=== PATIENT | male | born 1995 | race Hispanic/Latino ===

== ENCOUNTER 2019-03-03 21:19 | Emergency (ER) | payer OTHER ==
[~2019-03-03] VITALS: Ht 167.6 cm; Wt 84.1 kg
[2019-03-03 21:20] VITALS: BP 121/82
[2019-03-03] MEDS ORDERED: LIDOCAINE 2% MDV 20 ML VIAL As Ordered ONE (21:43)
[2019-03-03] MEDS ORDERED: LIDOCAINE 1% MDV 20ML VIAL SC ONE (21:45)
[2019-03-03] MEDS ORDERED: ADACEL/BOOSTRIX VACCINE (DIPHTH/PERTUSS/ACELL/TETANUS)0.5ML SYR (90715) IM ONE (21:45)
== END 2019-03-03 22:10 | disposition home or self-care (01) ==
LOC: M ED 21:19
DX: S61.211A Laceration without foreign body of left index finger without damage to nail, initial encounter (principal); W26.8XXA Contact with other sharp object(s), not elsewhere classified, initial encounter; Y92.89 Other specified places as the place of occurrence of the external cause; Z87.891 Personal history of nicotine dependence

== ENCOUNTER 2019-07-30 19:23 | Emergency (ER) | payer OTHER ==
[~2019-07-30] VITALS: Ht 167.6 cm; Wt 88.6 kg
[2019-07-30 19:28] VITALS: BP 131/67
[2019-07-30] MEDS ORDERED: IBUP80TA PO (20:27)
[2019-07-30] MEDS ORDERED: IBUPROFEN 800 MG TAB PO ONE (20:30)
--- NOTE | 2019-07-31 09:31 | REP ---
REASON: Pain after trauma. FINDINGS: No acute fracture or destructive osseous lesion. The mortise is intact. Electronically Signed by Naveen Thurman DO 07/31/2019 09:46 A
== END 2019-07-30 20:49 | disposition home or self-care (01) ==
LOC: M ED 19:23
DX: S93.402A Sprain of unspecified ligament of left ankle, initial encounter (principal); X50.1XXA Overexertion from prolonged static or awkward postures, initial encounter; Y92.89 Other specified places as the place of occurrence of the external cause; Y93.01 Activity, walking, marching and hiking; Y99.1 Military activity; F17.200 Nicotine dependence, unspecified, uncomplicated

== ENCOUNTER 2020-04-25 16:22 | Emergency (ER) | payer OTHER ==
[~2020-04-25] VITALS: Ht 172.7 cm; Wt 93.5 kg
[~2020-04-25 16:22] MED LIST: IBUP80TA PO
[2020-04-25] MEDS ORDERED: LIDOCAINE 4% CREAM 5GM (LMX4) TOP ONE (17:30)
[2020-04-25 17:48] LABS: BASO # 0.1 10^3/uL (0.0-0.2); BASO % 1.1 % (0.0-1.0); EOS # 0.2 10^3/uL (0.0-0.5); EOS % 2.4 % (0.0-3.0); HEMATOCRIT 45.8 % (42.0-52.0); HEMOGLOBIN 16.4 g/dl (13.5-17.5); LYMPH # 2.4 10^3/uL (1.5-5.0); LYMPH % 38.3 % (24.0-44.0); MEAN CORPUSCULAR HEMOGLOBIN 31.7 pg (27.0-33.0); MEAN CORPUSCULAR HGB CONC 35.8 g/dl (32.0-36.5); MEAN CORPUSCULAR VOLUME 88.6 fl (80.0-96.0); MONO # 0.5 10^3/uL (0.0-0.8); MONO % 7.1 % (0.0-5.0); NEUTROPHILS # 3.2 10^3/uL (1.5-8.5); NEUTROPHILS % 50.9 % (36.0-66.0); PLATELET COUNT, AUTOMATED 204 10^3/uL (150-450); RED BLOOD COUNT 5.17 10^6/uL (4.30-6.10); WHITE BLOOD COUNT 6.3 10^3/uL (4.0-10.0)
[2020-04-25 18:23] LABS: CK-MB VALUE MASS 4.4 NG/ML (<3.6); CPK CREATINE PHOSPHOKINASE 1292 U/L (39-308); MB/CK RELATIVE INDEX 0.34 (< OR =4); TROPONIN I < 0.02 NG/ML (< 0.10)
[2020-04-25] MEDS ORDERED: LIDO4CRE4 TOP (18:44)
[2020-04-25 18:57] VITALS: BP 136/80
--- NOTE | 2020-04-26 00:14 | REP ---
TWO-VIEW CHEST: REASON: Chest pain. COMPARISON: No priors. FINDINGS: The superior mediastinal structures are midline. The cardiac silhouette is unremarkable in size, shape, and position. The diaphragmatic surfaces of the lungs are regular, and the costophrenic angles are clear. The pulmonary [place] ri[place] are clear. The imaged osseous structures are intact. IMPRESSION: There is no acute cardiopulmonary disease. Electronically Signed by Naveen Thurman DO 04/26/2020 08:06 A
--- NOTE | 2020-04-26 21:26 | ECGEPIP ---
[facility] - ED Test Date: 2020-04-25 Pat Name: ELIN FONTANA Department: Room: - Gender: Male Assistant Food Service Director: AIMEE : 1995 Requested By: Lynn Geiger Order Number: [id number] Reading MD: Rafi Howell Measurements Intervals [place] Rate: 61 P: 31 AL: 168 QRS: 3 QRSD: 94 T: 5 QT: 378 QTc: 382 Interpretive Statements SINUS RHYTHM POOR R WAVE PROGRESSION NONSPECIFIC T WAVE ABNORMALITIES NO PRIORS FOR COMPARISON Electronically Signed on 04-26-2020 21:25:43 EDT by Rafi Howell
== END 2020-04-25 18:59 | disposition home or self-care (01) ==
LOC: M ED 16:22
DX: R07.89 Other chest pain (principal); R74.8 Abnormal levels of other serum enzymes

== ENCOUNTER → 2021-01-30 | Outpatient (CLI) | payer SELFPAY ==
[~2021-01-30] MED LIST changes: +LIDO4CRE4 TOP
== END ==
LOC: M LABSMTC 09:31
PROVIDERS: ATTEND Pediatrics
DX: Z11.52 Encounter for screening for COVID-19 (principal)